=== PATIENT | female | born 1995 | race Caucasian/White ===

== ENCOUNTER 2018-02-26 11:48 | Emergency (ER) | payer OTHER, SELFPAY ==
[2018-02-26 11:50] VITALS: BP 131/72; PULSE 72; RESP 20; TEMP 36.4; O2SAT 100; BMI 28.1
[2018-02-26 12:17] LABS: Amorphous Sediment Urine 1+; Bacteria Urine Moderate (10-30); Culture Indicated Urine Specimen Cultured; Mucus Urine 1+ (Negative); RBC Urine 1-5/HPF (0-5/HPF); Squamous Epithelial Cell Urine 1-5 /HPF; WBC Urine >100/HPF (0-5/HPF)
--- NOTE | 2018-02-26 12:34 | ED.FEMALEGU ---
HPI - Female Genitourinary <BETO Villanueva - Last Filed: 02/26/18 13:00> General Chief complaint: Urogenital-Female Stated complaint: UTI Time Seen by Provider: 02/26/18 12:07 Source: patient and family Mode of arrival: ambulatory Limitations: no limitations History of Present Illness HPI Narrative: Patient presents with chief complaint of dysuria urgency and frequency that started this morning. She denies any fevers, nausea vomiting diarrhea or flank pain. She states she is approximately 12 weeks and has an appointment with her Ob scheduled this week. She states she is slightly behind on normal OB care. She denies any abdominal pain, vaginal spotting, vaginal discharge. She denies any abdominal pain. she states that she has had UTIs before but no recent antibiotics. This feels like her previous UTI. Related Data Previous Rx's Medication Instructions Recorded cephalexin 500 mg PO QID #28 cap 02/26/18 Allergies Allergy/AdvReac Type Severity Reaction Status Date / Time No Known Drug Allergies Allergy Verified 02/26/18 12:07 Review of Systems <BETO Villanueva - Last Filed: 02/26/18 13:00> Review of Systems GENERAL: Denies chills, fatigue, malaise, fever, sweats. HEENT: Denies sinus pain, ear pain, sore throat, difficulty swallowing, dizziness. RESPIRATORY: Denies dyspnea, cough, wheezing, hemoptysis, sputum. CARDIOVASCULAR: Denies chest pain, palpitations, orthopnea, edema, GASTROINTESTINAL: Denies nausea, vomiting, abdominal pain, diarrhea, constipation, melena. : See HPI MUSCULOSKELETAL: denies weakness, joint pain, or bony pain SKIN: Denies rash, skin lesions, or other NEUROLOGIC: Denies weakness, headache, numbness, change in speech, confusion, seizures, incoordination. PSYCHIATRIC: No concerning psychosocial issues. 12 point review of systems is negative except for those stated above Exam <BETO Villanueva - Last Filed: 02/26/18 13:00> Narrative Exam Narrative: GENERAL: This is a well-nourished, well-developed patient, With at bedside in no acute distress. HEAD: Atraumatic. Normocephalic. No temporal or scalp tenderness. EYES: Pupils equal round and reactive. Extraocular motions intact. No scleral icterus. No injection or drainage. ENT: Nose without bleeding, purulent drainage or septal hematoma. Throat without erythema, tonsillar hypertrophy or exudate. Uvula midline. Airway patent. NECK: Trachea midline. No JVD or lymphadenopathy. Supple, nontender, no meningeal signs. CARDIOVASCULAR: Regular rate and rhythm without murmurs, gallops, or rubs. RESPIRATORY: Clear to auscultation. Breath sounds equal bilaterally. No wheezes, rales, or rhonchi. GASTROINTESTINAL: Abdomen soft, nondistended. No hepato-splenomegaly, or palpable masses. No guarding. Slight suprapubic tenderness to palpation. Active bowel sounds all 4 quadrants. No pain at McBurney's point. EXTREMITIES: No clubbing, cyanosis, or edema. No joint tenderness, effusion, or edema noted. BACK: Nontender without deformity or crepitance. No flank tenderness. No CVA tenderness bilaterally. NEURO: AOx3. SKIN: No rash or erythema. Initial Vital Signs Initial Vital Signs: Vital Signs Temperature 97.6 F 02/26/18 11:50 Pulse Rate 72 02/26/18 11:50 Respiratory Rate 20 02/26/18 11:50 Blood Pressure 131/72 02/26/18 11:50 Pulse Oximetry 100 02/26/18 11:50 <DO Cipriano Kwon Last Filed: 02/27/18 07:51> Initial Vital Signs Initial Vital Signs: Vital Signs Temperature 97.6 F 02/26/18 11:50 Pulse Rate 72 02/26/18 11:50 Respiratory Rate 20 02/26/18 11:50 Blood Pressure 131/72 02/26/18 11:50 Pulse Oximetry 100 02/26/18 11:50 Course <BETO Villanueva - Last Filed: 02/26/18 13:00> Orders Ordered: ED Orders 02/26/18 12:13 Urine Culture Stat Urine Microscopic Stat Vital Signs - 8 hr 02/26/18 11:50 Temperature 97.6 F Pulse Rate 72 Respiratory Rate 20 Blood Pressure 131/72 Pulse Oximetry 100 <Rochelle Gill DO - Last Filed: 02/27/18 07:51> Orders Ordered: ED Orders 02/26/18 12:13 Urine Culture Stat Urine Microscopic Stat Vital Signs - 8 hr 02/26/18 11:50 Temperature 97.6 F Pulse Rate 72 Respiratory Rate 20 Blood Pressure 131/72 Pulse Oximetry 100 MDM - Female Genitourinary <DESTINEY Villanueva-BC - Last Filed: 02/26/18 13:00> Lab Data Attestation: I reviewed the patient's lab results. Lab Results 02/26/18 Range/Units 12:13 Urine RBC 1-5/hpf (0-5/HPF) Urine WBC >100/hpf H (0-5/HPF) Ur Squamous Epith Cells 1-5 /hpf Amorphous Sediment 1+ Urine Bacteria Moderate (10-30) H (None) Urine Mucus 1+ H (Negative) Ur Culture Indicated? Specimen cultured Micro UA Comment Not Reportable Point of Care Testing Test Results Positive Urine Dip Bedside Urine Glucose Negative Bedside Urine Bilirubin - Negative Bedside Urine Ketone - Negative Urine Specific [place] 1.030 Bedside Urine Occult Blood +/- Bedside Urine pH 6.0 Bedside Urine Protein +/- 15 Bedside Urine Urobilinogen - Negative Bedside Urine Nitrite - Negative Bedside Urine Leukocytes +++ 500 Esterase MDM Narrative Medical decision making narrative: Patient presents with UTI symptoms including urinary urgency frequency and dysuria. On her urinalysis, she is noted to have bacteria. I will initiate treatment for urinary tract infection and urine cultures pending. Given that she is I will treat her 500 mg Keflex 4 times a day as per up-to-date. I discussed return precautions including fevers, inability keep down fluids, flank pain. Patient and had no questions or concerns upon discharge. <Rochelle Gill DO - Last Filed: 02/27/18 07:51> Lab Data Lab Results 02/26/18 Range/Units 12:13 Urine RBC 1-5/hpf (0-5/HPF) Urine WBC >100/hpf H (0-5/HPF) Ur Squamous Epith Cells 1-5 /hpf Amorphous Sediment 1+ Urine Bacteria Moderate (10-30) H (None) Urine Mucus 1+ H (Negative) Ur Culture Indicated? Specimen cultured Micro UA Comment Not Reportable Point of Care Testing Test Results Positive Urine Dip Bedside Urine Glucose Negative Bedside Urine Bilirubin - Negative Bedside Urine Ketone - Negative Urine Specific [place] 1.030 Bedside Urine Occult Blood +/- Bedside Urine pH 6.0 Bedside Urine Protein +/- 15 Bedside Urine Urobilinogen - Negative Bedside Urine Nitrite - Negative Bedside Urine Leukocytes +++ 500 Esterase Discharge Plan Departure Patient Disposition: Home Clinical Impression: Urinary tract infection Discharge Date/Time: 02/26/18 12:56 Interventions: ED Discharge Assessment Last Done: 02/26/18 12:45 Instructions: DI for Urinary Tract Infection (UTI) Activity Restrictions/Additional Instructions: I am starting you on an antibiotic for urinary tract infection. Please follow-up with your OBGYN as previously scheduled. Monitor for fever, flank pain, worsening, inability keep down fluids. Please be evaluated if any of these occur. Prescriptions: New cephalexin 500 mg capsule 500 mg PO QID Qty: 28 RF: 0 [facility]: [facility] <Rochelle Gill, - Last Filed: 02/27/18 07:51> Cosign ED Attending Daljit Attestation: I was immediately available in the department for consultation. Documentation has been reviewed. I agree with assessment and plan.
--- NOTE | 2018-02-26 12:40 | ED_ITS ---
HPI - Female Genitourinary <BETO Villanueva - Last Filed: 02/26/18 13:00> General Chief complaint: Urogenital-Female Stated complaint: UTI Time Seen by Provider: 02/26/18 12:07 Source: patient and family Mode of arrival: ambulatory Limitations: no limitations History of Present Illness HPI Narrative: Patient presents with chief complaint of dysuria urgency and frequency that started this morning. She denies any fevers, nausea vomiting diarrhea or flank pain. She states she is approximately 12 weeks and has an appointment with her Ob scheduled this week. She states she is slightly behind on normal OB care. She denies any abdominal pain, vaginal spotting, vaginal discharge. She denies any abdominal pain. she states that she has had UTIs before but no recent antibiotics. This feels like her previous UTI. Related Data Previous Rx's Medication Instructions Recorded cephalexin 500 mg PO QID #28 cap 02/26/18 Allergies Allergy/AdvReac Type Severity Reaction Status Date / Time No Known Drug Allergies Allergy Verified 02/26/18 12:07 Review of Systems <BETO Villanueva - Last Filed: 02/26/18 13:00> Review of Systems GENERAL: Denies chills, fatigue, malaise, fever, sweats. HEENT: Denies sinus pain, ear pain, sore throat, difficulty swallowing, dizziness. RESPIRATORY: Denies dyspnea, cough, wheezing, hemoptysis, sputum. CARDIOVASCULAR: Denies chest pain, palpitations, orthopnea, edema, GASTROINTESTINAL: Denies nausea, vomiting, abdominal pain, diarrhea, constipation, melena. : See HPI MUSCULOSKELETAL: denies weakness, joint pain, or bony pain SKIN: Denies rash, skin lesions, or other NEUROLOGIC: Denies weakness, headache, numbness, change in speech, confusion, seizures, incoordination. PSYCHIATRIC: No concerning psychosocial issues. 12 point review of systems is negative except for those stated above Exam <BETO Villanueva - Last Filed: 02/26/18 13:00> Narrative Exam Narrative: GENERAL: This is a well-nourished, well-developed patient, With at bedside in no acute distress. HEAD: Atraumatic. Normocephalic. No temporal or scalp tenderness. EYES: Pupils equal round and reactive. Extraocular motions intact. No scleral icterus. No injection or drainage. ENT: Nose without bleeding, purulent drainage or septal hematoma. Throat without erythema, tonsillar hypertrophy or exudate. Uvula midline. Airway patent. NECK: Trachea midline. No JVD or lymphadenopathy. Supple, nontender, no meningeal signs. CARDIOVASCULAR: Regular rate and rhythm without murmurs, gallops, or rubs. RESPIRATORY: Clear to auscultation. Breath sounds equal bilaterally. No wheezes , rales, or rhonchi. GASTROINTESTINAL: Abdomen soft, nondistended. No hepato-splenomegaly, or palpable masses. No guarding. Slight suprapubic tenderness to palpation. Active bowel sounds all 4 quadrants. No pain at McBurney's point. EXTREMITIES: No clubbing, cyanosis, or edema. No joint tenderness, effusion, or edema noted. BACK: Nontender without deformity or crepitance. No flank tenderness. No CVA tenderness bilaterally. NEURO: AOx3. SKIN: No rash or erythema. Initial Vital Signs Initial Vital Signs: Vital Signs Temperature 97.6 F 02/26/18 11:50 Pulse Rate 72 02/26/18 11:50 Respiratory Rate 20 02/26/18 11:50 Blood Pressure 131/72 02/26/18 11:50 Pulse Oximetry 100 02/26/18 11:50 <DO Cipriano Kwon Last Filed: 02/27/18 07:51> Initial Vital Signs Initial Vital Signs: Vital Signs Temperature 97.6 F 02/26/18 11:50 Pulse Rate 72 02/26/18 11:50 Respiratory Rate 20 02/26/18 11:50 Blood Pressure 131/72 02/26/18 11:50 Pulse Oximetry 100 02/26/18 11:50 Course <BETO Villanueva - Last Filed: 02/26/18 13:00> Orders Ordered: ED Orders 02/26/18 12:13 Urine Culture Stat Urine Microscopic Stat Vital Signs - 8 hr 02/26/18 11:50 Temperature 97.6 F Pulse Rate 72 Respiratory Rate 20 Blood Pressure 131/72 Pulse Oximetry 100 <Rochelle Gill DO - Last Filed: 02/27/18 07:51> Orders Ordered: ED Orders 02/26/18 12:13 Urine Culture Stat Urine Microscopic Stat Vital Signs - 8 hr 02/26/18 11:50 Temperature 97.6 F Pulse Rate 72 Respiratory Rate 20 Blood Pressure 131/72 Pulse Oximetry 100 MDM - Female Genitourinary <DESTINEY Villanueva-BC - Last Filed: 02/26/18 13:00> Lab Data Attestation: I reviewed the patient's lab results. Lab Results 02/26/18 Range/Units 12:13 Urine RBC 1-5/hpf (0-5/HPF) Urine WBC >100/hpf H (0-5/HPF) Ur Squamous Epith Cells 1-5 /hpf Amorphous Sediment 1+ Urine Bacteria Moderate (10-30) H (None) Urine Mucus 1+ H (Negative) Ur Culture Indicated? Specimen cultured Micro UA Comment Not Reportable Point of Care Testing Test Results Positive Urine Dip Bedside Urine Glucose Negative Bedside Urine Bilirubin - Negative Bedside Urine Ketone - Negative Urine Specific [place] 1.030 Bedside Urine Occult Blood +/- Bedside Urine pH 6.0 Bedside Urine Protein +/- 15 Bedside Urine Urobilinogen - Negative Bedside Urine Nitrite - Negative Bedside Urine Leukocytes +++ 500 Esterase MDM Narrative Medical decision making narrative: Patient presents with UTI symptoms including urinary urgency frequency and dysuria. On her urinalysis, she is noted to have bacteria. I will initiate treatment for urinary tract infection and urine cultures pending. Given that she is I will treat her 500 mg Keflex 4 times a day as per up-to-date. I discussed return precautions including fevers, inability keep down fluids, flank pain. Patient and had no questions or concerns upon discharge. <Rochelle Gill DO - Last Filed: 02/27/18 07:51> Lab Data Lab Results 02/26/18 Range/Units 12:13 Urine RBC 1-5/hpf (0-5/HPF) Urine WBC >100/hpf H (0-5/HPF) Ur Squamous Epith Cells 1-5 /hpf Amorphous Sediment 1+ Urine Bacteria Moderate (10-30) H (None) Urine Mucus 1+ H (Negative) Ur Culture Indicated? Specimen cultured Micro UA Comment Not Reportable Point of Care Testing Test Results Positive Urine Dip Bedside Urine Glucose Negative Bedside Urine Bilirubin - Negative Bedside Urine Ketone - Negative Urine Specific [place] 1.030 Bedside Urine Occult Blood +/- Bedside Urine pH 6.0 Bedside Urine Protein +/- 15 Bedside Urine Urobilinogen - Negative Bedside Urine Nitrite - Negative Bedside Urine Leukocytes +++ 500 Esterase Discharge Plan Departure Patient Disposition: Home Clinical Impression: Urinary tract infection Discharge Date/Time: 02/26/18 12:56 Interventions: ED Discharge Assessment Last Done: 02/26/18 12:45 Instructions: DI for Urinary Tract Infection (UTI) Activity Restrictions/Additional Instructions: I am starting you on an antibiotic for urinary tract infection. Please follow- up with your OBGYN as previously scheduled. Monitor for fever, flank pain, worsening, inability keep down fluids. Please be evaluated if any of these occur. Prescriptions: New cephalexin 500 mg capsule 500 mg PO QID Qty: 28 RF: 0 Referrals: [facility] [Provider Group] [facility]] <Rochelle Gill, - Last Filed: 02/27/18 07:51> Cosign ED Attending Daljit Attestation: I was immediately available in the department for consultation. Documentation has been reviewed. I agree with assessment and plan.
--- NOTE | 2018-03-02 17:36 | PC.NURSE ---
Pt states the medicine is working great. Pt has no improvements. My Nurse was excellant
== END 2018-02-26 12:56 | disposition home or self-care (01) ==
PROVIDERS: Emergency Provider Nurse Practitioner Family
DX: N39.0 Urinary tract infection, site not specified (principal)
CPT/HCPCS: 81003; 81015; 81025; 87086; 99282; 99283